=== PATIENT | male | born 1960 | race Caucasian/White ===

== ENCOUNTER 2017-04-13 07:44 | Emergency (ER) | payer OTHER ==
[2017-04-13 07:57] VITALS: O2SAT 96
--- NOTE | 2017-04-13 08:14 | CPEKG ---
Heart Rate: 98 RR Interval: 612 P-R Interval: 160 QRSD Interval: 100 QT Interval: 384 QTC Interval: 491 P [place]: 50 QRS [place]: 157 T Wave [place]: 3 EKG Severity - ABNORMAL ECG - EKG Impression: SINUS RHYTHM EKG Impression: PROBABLE RIGHT VENTRICULAR HYPERTROPHY EKG Impression: BORDERLINE PROLONGED QT INTERVAL Electronically Signed By: Homer Benites 13-Apr-2017 08:41:45
--- NOTE | 2017-04-13 08:21 | EDPHY ---
General - History Smoking Status: Never smoked Narrative: CHIEF COMPLAINT: chest pain, flank pain, headache, neck pain, elbow pain HISTORY OF PRESENT ILLNESS: Patient presents with complaints of chest pain, flank pain, headache, neck pain and elbow pain. The onset is at different times throughout the last 4 hr. Chest pain started 4 hr ago right after he was arrested. He says that he was sleeping in his car when he was approached by police. He says he was [facility] and at that time noted some chest pain. This is retrosternal. It is described as a pressure type pain. Radiates to the right shoulder. No shortness of breath. No cough. No exertional pain. He also states that he has right flank pain that started at the same time. Radiates into the right ribs. The neck pain started shortly after this when he reportedly fell [facility] the [facility]. He says he struck the ground and his neck started hurting of to his right ear. He also associates it with a headache. He also complains of a mild to moderate left elbow pain that is worse with palpation and movement. He moves his arm completely when he shows me the area of pain. He denies vomiting but says he is nauseated. No other associated complaints or modifying factors REVIEW OF SYSTEMS: Ten systems reviewed and are negative unless otherwise noted in the HPI PCP: "I don't remember. I go to a walk-in clinic" SPECIALISTS: Denies any specialists PAST MEDICAL HISTORY: Hypertension. Does not recall any other diagnoses PAST SURGICAL HISTORY: No recent surgeries SOCIAL HISTORY: Daily smoker. Occasional alcohol user. Denies drug use. Works in construction FAMILY HISTORY: Father had a heart attack greater than age 60 EXAMINATION General Appearance: Alert, no distress, well-nourished Head: normocephalic, atraumatic. No James sign. No raccoon eyes. No scalp lacerations. No outward signs of trauma. Eyes: Pupils equal and round, no conjunctival pallor or injection. EOMs are intact symmetrically. No nystagmus. ENT, Mouth: Mucous membranes moist. Uvula is midline and airway is widely patent. Neck: C-collar in place prior to my examination. The trachea is midline. I did not remove the C-collar for examination Respiratory: Lungs are clear to auscultation. No wheezing, rhonchi or crackles Cardiovascular: Regular rate and rhythm. No murmur Gastrointestinal: Obese Abdomen is soft and nondistended. There is no tenderness in the 4 quadrants. Mild tenderness in the right CVA. No tympany. No rigidity. No guarding. Back: No midline tenderness. No crepitus, step-off or deformity. Neurological: GCS 15. A&O, nonfocal, strength is 5/5 and shoulders, elbows, wrists, knees and ankles. No footdrop. No wrist drop Skin: Warm and dry, no rash. No petechiae or purpura. No lacerations. Extremities: Mild tenderness of the left elbow. He will fully straighten the elbow without hesitation. Range of motion is symmetric in the elbows, wrists, knees and ankles. Psychiatric: Anxious DIFFERENTIAL DIAGNOSES: Including but not limited to closed head injury, cervical sprain, ACS, rib fracture, contusion, elbow sprain, elbow fracture, UTI, renal colic MDM: 8:15 a.m. Multiple complaints with unwitnessed fall. There is no trauma or MVC. The patient arrives in the custody of law enforcement. He reports that he slipped and fell from standing height and has complaints of headache and neck pain as well as left elbow pain from this. He also has chest pain of 4 hr duration, right flank pain and multiple other complaints that are changing dependent upon the provider at bedside. His abdominal exam is benign. He was hyperventilating before I entered the room, calm during examination, and then hyperventilating again when I left the room. I have ordered CT scans of the head cervical spine due to the reported fall. I have ordered chest x-ray, EKG and laboratory studies due to the chest pain. I have ordered urinalysis and abdominal laboratory studies for the flank pain. I have ordered x-ray of the left elbow as he also has intermittent complaints of left elbow pain. Vital signs are within normal limits. He is protecting his airway with no difficulty. 8:45 a.m. Laboratory studies reveal normal CBC. Chemistry is consistent with the patient' s alcohol ingestion but non concerning. Urinalysis is pending. Chest x-ray as read by myself and Dr. Benites reveals for inspiration but no acute findings. 9:15 a.m. Contacted by radiologist Dr. Celeste. CT scans of the head and cervical spine reveal no acute findings. Chronic changes as documented. 9:30 a.m. I reviewed the plain film with Dr. Benites. No obvious fracture. There may be a chronic injury to the ulnar head. 9:35 a.m. Left elbow X-ray has been read as negative for acute fracture. Patient has already removed his own cervical collar prior to the official interpretations of the CT scans. I have sat down with the patient and discussed the laboratory study findings, CT scan findings, plain film findings. We discussed that he does not seem to have any emergent findings by our workup here. I discussed the nature of chest pain and the need for follow up with primary care physician for further evaluation of the chest pain. We discussed ED precautions for exertional chest pain or further chest pain. He is resting comfortably and appears calm at this time. He will not converse with me but I did discuss all the negative findings with him. At this time I do feel he is stable for discharge from the emergency department. He is in no acute distress at this time. [place] Heart Score: 3 with risk factors of smoking, hypertension and obesity. EKG Interpretation: Dr. Benites SUPERVISION: Patient was independently examined, but I discussed the case with my secondary supervising physician Dr. Benites (Shan Sauer) Medical Decision Making: PHYSICIAN DOCUMENTATION: The patient was evaluated and managed by the Physician Tanbark Peeler and myself. I have reviewed the chart and agree with the findings and plan of care as documented. In addition, I examined the patient myself. History confirmed as the patient's primary complaint to me when I see him is that he has severe anxiety. Physical findings as follows: Hyperventilating, appears very anxious. 12-lead EKG interpreted by me; official reading is in trace master. My interpretation is sinus rhythm with RVH, no acute ST changes. Low risk by HEART score for MACE. I am the secondary supervising physician. (Homer Benites) - Diagnostics Imaging Results: Imaging Impressions Cervical Spine CT 04/13/17 08:20 Impression: No evidence for acute intracranial abnormality. CT cervical spine without contrast. History: Trauma. Pain. Technique: 1.5 mm helical images were obtained the cervical spine without contrast. Multiplanar reformation was performed. Radiation dose reduction technique was utilized. Findings: No evidence for fracture or subluxation. Disk heights are maintained. No evidence for prevertebral soft tissue swelling. Mild early multilevel degenerative disk and degenerative joint disease seen cervical spine. Impression: No evidence for cervical spine fracture. Results called and discussed with Shan Sauer PA-C at 04/13/2017 9:20. Chest X-Ray 04/13/17 08:20 Impression: Poor respiratory effort. No other findings for acute cardiopulmonary abnormality. Head CT 04/13/17 08:20 Impression: No evidence for acute intracranial abnormality. CT cervical spine without contrast. History: Trauma. Pain. Technique: 1.5 mm helical images were obtained the cervical spine without contrast. Multiplanar reformation was performed. Radiation dose reduction technique was utilized. Findings: No evidence for fracture or subluxation. Disk heights are maintained. No evidence for prevertebral soft tissue swelling. Mild early multilevel degenerative disk and degenerative joint disease seen cervical spine. Impression: No evidence for cervical spine fracture. Results called and discussed with Shan Sauer PA-C at 04/13/2017 9:20. Elbow X-Ray 04/13/17 08:28 Impression: No evidence for acute fracture left elbow. - Objective Vital Signs: Initial Vital Signs Temperature (C) 36.8 C 04/13/17 07:54 Heart Rate 97 04/13/17 07:54 Respiratory Rate 16 04/13/17 07:54 Blood Pressure 151/110 H 04/13/17 07:54 O2 Sat (%) 96 04/13/17 07:54 O2 Delivery Mode Room Air Allergies/Adverse Reactions: No Known Allergies Allergy (Unverified 04/13/17 07:54) Home Medications: Medication Instructions Recorded "Htn Med" 04/13/17 Laboratory Results: Laboratory Results 04/13/17 08:10 04/13/17 08:10 04/13/17 04/13/17 04/13/17 08:40 08:10 08:10 WBC 4.96 10^3/uL 10^3/uL (3.80-9.50) RBC 5.11 10^6/uL 10^6/uL (4.40-6.38) Hgb 16.7 g/dL g/dL (13.7-17.5) Hct 46.7 % % (40.0-51.0) MCV 91.4 fL fL (81.5-99.8) MCH 32.7 pg pg (27.9-34.1) MCHC 35.8 g/dL g/dL (32.4-36.7) RDW 12.7 % % (11.5-15.2) Plt Count 240 10^3/uL 10^3/uL (150-400) MPV 9.2 fL fL (8.7-11.7) Neut % (Auto) 81.2 % H % (39.3-74.2) Lymph % (Auto) 10.1 % L % (15.0-45.0) Thomas % (Auto) 7.5 % % (4.5-13.0) Eos % (Auto) 0.4 % L % (0.6-7.6) Baso % (Auto) 0.4 % % (0.3-1.7) Nucleat RBC Rel Count 0.0 % % (0.0-0.2) Absolute Neuts (auto) 4.03 10^3/uL 10^3/uL (1.70-6.50) Absolute Lymphs (auto) 0.50 10^3/uL L 10^3/uL (1.00-3.00) Absolute Monos (auto) 0.37 10^3/uL 10^3/uL (0.30-0.80) Absolute Eos (auto) 0.02 10^3/uL L 10^3/uL (0.03-0.40) Absolute Basos (auto) 0.02 10^3/uL 10^3/uL (0.02-0.10) Absolute Nucleated RBC 0.00 10^3/uL 10^3/uL (0-0.01) Immature Gran % 0.4 % % (0.0-1.1) Immature Gran # 0.02 10^3/uL 10^3/uL (0.00-0.10) Sodium 148 mEq/L H mEq/L (135-145) Potassium 3.8 mEq/L mEq/L (3.5-5.2) Chloride 112 mEq/L H mEq/L (97-110) Carbon Dioxide 15 mEq/l L mEq/l (22-31) Anion Gap 21 mEq/L H mEq/L (8-16) BUN 17 mg/dL mg/dL (7-23) Creatinine 1.3 mg/dL mg/dL (0.7-1.3) Estimated GFR 57 Glucose 123 mg/dL H mg/dL (70-100) Calcium 10.1 mg/dL mg/dL (8.5-10.4) Total Bilirubin 0.6 mg/dL mg/dL (0.1-1.4) Conjugated Bilirubin 0.3 mg/dL mg/dL (0.0-0.5) Unconjugated Bilirubin 0.3 mg/dL mg/dL (0.0-1.1) AST 28 IU/L IU/L (17-59) ALT 39 IU/L IU/L (21-72) Alkaline Phosphatase 64 IU/L IU/L (38-126) Troponin I < 0.012 ng/mL ng/mL (0.000-0.034) Total Protein 7.5 g/dL g/dL (6.3-8.2) Albumin 4.9 g/dL g/dL (3.5-5.0) Lipase 316 IU/L H IU/L (23-300) Urine Color YELLOW Urine Appearance CLEAR Urine pH 5.0 (5.0-7.5) Ur Specific [place] 1.019 (1.002-1.030) Urine Protein NEGATIVE (NEGATIVE) Urine Ketones NEGATIVE (NEGATIVE) Urine Blood NEGATIVE (NEGATIVE) Urine Nitrate NEGATIVE (NEGATIVE) Urine Bilirubin NEGATIVE (NEGATIVE) Urine Urobilinogen NEGATIVE EU EU (0.2-1.0) Ur Leukocyte Esterase NEGATIVE (NEGATIVE) Urine RBC NONE SEEN /hpf /hpf (0-3) Urine WBC 1-3 /hpf /hpf (0-3) Ur Epithelial Cells TRACE /lpf /lpf (NONE-1+) Urine Mucus TRACE /lpf /lpf (NONE-1+) Urine Glucose NEGATIVE (NEGATIVE) Medications Given: Discontinued Medications Lorazepam (Ativan Injection) 1 mg IVP EDNOW ONE Stop: 04/13/17 08:41 Last Admin: 04/13/17 08:46 Dose: 1 mg Ondansetron HCl (Zofran) 4 mg IVP EDNOW ONE Stop: 04/13/17 08:41 Last Admin: 04/13/17 08:46 Dose: 4 mg Departure - Departure Disposition: Law Enforcement/Court/Long Term Clinical Impression: Neck pain, Elbow pain, left Chest pain Qualifiers: Chest pain type: unspecified Qualified Code(s): R07.9 - Chest pain, unspecified Condition: Good Instructions: Chest Pain (ED), Cervical Strain (ED), Elbow Sprain (ED) Additional Instructions: 1. [facility] as [facility] for [facility] care 2. ED precautions for any exertional chest pain, shortness of breath Referrals: Patient,NotPresent [Unknown] - As per Instructions [facility],. [Clinic] - As per Instructions
[2017-04-13 08:24] LABS: PLATELET COUNT 240 10^3/uL (150-400)
[2017-04-13] MEDS ORDERED: ONDANSETRON 4 MG/2 ML VIAL IVP ONE (08:40)
[2017-04-13] MEDS ORDERED: LORazepam 2 MG/ML INJ IVP ONE (08:40)
[2017-04-13 09:21] VITALS: BP 158/105; PULSE 92; RESP 20; TEMP 97.9
== END 2017-04-13 09:45 ==
LOC: EEVIPCON 07:44
DX: S19.9XXA Unspecified injury of neck, initial encounter (principal); S59.902A Unspecified injury of left elbow, initial encounter; S29.9XXA Unspecified injury of thorax, initial encounter; I10 Essential (primary) hypertension; W01.198A Fall on same level from slipping, tripping and stumbling with subsequent striking against other object, initial encounter; Y92.149 Unspecified place in prison as the place of occurrence of the external cause
CPT/HCPCS: 96374; A4565; J2060; J2405